=== PATIENT | female | born 1990 | race Caucasian/White ===

== ENCOUNTER 2021-07-30 16:35 | Day surgery (SDC) | payer BC ==
[2021-07-30 17:10] VITALS: BMI 31.9
[2021-07-30] MEDS ORDERED: hydrALAZINE 20 MG/ML VIAL SLOW IVP PRN (18:10)
[2021-07-30] MEDS ORDERED: Acetaminophen 500 MG TAB PO PRN (18:19)
[2021-07-30 18:56] LABS: #Eosinphils 0.1 10x3/uL (0.0-0.5); #Monocytes 0.6 10x3/uL (0.0-1.1); #Neutrophils 6.7 10x3/uL (1.5-8.4); %Basophils 0.2 % (0.0-2.0); %Eosinophils 0.7 % (0.0-6.0); %Lymphocytes 22.2 % (18.0-47.0); %Monocytes 6.1 % (0.0-10.0); %Neutrophils 70.2 % (40.0-75.0); Hemoglobin 10.9 g/dL (12.0-15.5); Mean Corpuscular HGB CONC 33.3 g/dL (32.0-36.0); Mean Corpuscular Hemoglobin 29.7 pg (27.0-33.0); Mean Corpuscular Volume 89.1 fl (81.6-98.3); Mean Platelet Volume 12.6 fl (7.4-10.4); Platelet Count 255 10x3/uL (150-450); RBC Distribution Width 15.1 % (11.5-14.5); Red Blood Cell (RBC) Count 3.67 10x6/uL (3.90-5.03); White Blood Cell (WBC) Count 9.5 10x3/uL (3.5-10.5)
[2021-07-30 19:11] LABS: ALT (SGPT) 8 U/L (8-55); AST (SGOT) 15 U/L (5-34); Albumin 3.5 g/dL (3.5-5.0); Alkaline Phosphatase 91 U/L (40-110); Anion Gap 15 mmol/L (10-20); BUN (Urea Nitrogen) 8 mg/dL (7.0-18.7); Bilirubin, Total 0.3 mg/dL (0.2-1.2); Calc. Creatinine Clearance 170 mL/min (70-130); Calcium 10.2 mg/dL (7.8-10.44); Carbon Dioxide 24 mmol/L (22-29); Chloride 103 mmol/L (98-107); Globulin 3.5 g/dL (2.4-3.5); Glucose 74 mg/dL (70-105); Potassium 4.5 mmol/L (3.5-5.1); Sodium 137 mmol/L (136-145)
== END 2021-07-30 20:35 | disposition home or self-care (01) ==
LOC: CSHLD/OP 16:35
PROVIDERS: ATTEND Obstetrics & Gynecology
DX: O13.3 Gestational [pregnancy-induced] hypertension without significant proteinuria, third trimester (principal); O34.211 Maternal care for low transverse scar from previous cesarean delivery; Z3A.32 32 weeks gestation of pregnancy; Z88.0 Allergy status to penicillin; Z91.030 Bee allergy status
CPT/HCPCS: 36415; 80053; 81003; 82570; 84156; 85025

== ENCOUNTER 2021-08-07 15:24 | Inpatient (IN) | payer BC ==
[2021-08-07] MEDS ORDERED: hydrALAZINE 20 MG/ML VIAL SLOW IVP PRN ×3 (15:58→21:03)
[2021-08-07 16:14] VITALS: BMI 32.2
[2021-08-07 16:38] LABS: #Eosinphils 0.1 10x3/uL (0.0-0.5); #Monocytes 0.4 10x3/uL (0.0-1.1); #Neutrophils 6.4 10x3/uL (1.5-8.4); %Basophils 0.1 % (0.0-2.0); %Eosinophils 1.2 % (0.0-6.0); %Lymphocytes 26.1 % (18.0-47.0); %Monocytes 4.6 % (0.0-10.0); %Neutrophils 67.4 % (40.0-75.0); Hemoglobin 10.6 g/dL (12.0-15.5); Mean Corpuscular HGB CONC 32.3 g/dL (32.0-36.0); Mean Corpuscular Hemoglobin 29.1 pg (27.0-33.0); Mean Corpuscular Volume 90.1 fl (81.6-98.3); Mean Platelet Volume 12.5 fl (7.4-10.4); Platelet Count 251 10x3/uL (150-450); RBC Distribution Width 14.5 % (11.5-14.5); Red Blood Cell (RBC) Count 3.64 10x6/uL (3.90-5.03); White Blood Cell (WBC) Count 9.5 10x3/uL (3.5-10.5)
[2021-08-07 16:55] LABS: ALT (SGPT) 47 U/L (8-55); AST (SGOT) 22 U/L (5-34); Albumin 3.3 g/dL (3.5-5.0); Alkaline Phosphatase 97 U/L (40-110); Anion Gap 15 mmol/L (10-20); BUN (Urea Nitrogen) 10 mg/dL (7.0-18.7); Bilirubin, Total 0.3 mg/dL (0.2-1.2); Calc. Creatinine Clearance 182 mL/min (70-130); Calcium 9.5 mg/dL (7.8-10.44); Carbon Dioxide 22 mmol/L (22-29); Chloride 102 mmol/L (98-107); Globulin 3.3 g/dL (2.4-3.5); Glucose 79 mg/dL (70-105); Potassium 4.4 mmol/L (3.5-5.1); Protein, Total 6.6 g/dL (6.0-8.3); Sodium 135 mmol/L (136-145)
[2021-08-07] MEDS ORDERED: Ondansetron PF 4 MG/2 ML Vial IVP PRN ×2 (18:24→21:22)
[2021-08-07] MEDS ORDERED: Promethazine HCl 25 MG/ML VIAL IM PRN ×2 (18:24→21:22)
[2021-08-07] MEDS ORDERED: Calcium Gluc 4.6 MEQ/10 ML (100 MG/ML) SLOW IVP PRN (18:24)
[2021-08-07] MEDS ORDERED: Lactated Ringer's 1,000 ML IV SCH (18:30)
[2021-08-07] MEDS ORDERED: ceFAZolin 2 GM/Dextrose 50 ML 2 GM in Premix Bag 1 BAG IVPB SCH (18:30)
[2021-08-07] MEDS ORDERED: Bicitra 30 ML UDCUP PO PRN (18:30)
[2021-08-07] MEDS ORDERED: Famotidine/PF 20 mg/2ml Vial SLOW IVP PRN (18:30)
[2021-08-07] MEDS ORDERED: Magnesium Sulfate 20 gm/500 ml 20 GM/500 ML BAG IVPB SCH (18:30)
[2021-08-07] MEDS ORDERED: Magnesium Sulfate 20 GM/WATER 500 ML BAG IVPB SCH (18:30)
[2021-08-07] MEDS ORDERED: Magnesium Sulfate 20 gm/500 ml 20 GM/500 ML BAG ONE (18:34)
[2021-08-07 19:07] LABS: Syphilis Antibody Nonreactive (Nonreactive); Syphilis Antibody Index 0.05 S/CO (<1.00 Non-Reactive)
[2021-08-07] MEDS ORDERED: diphenhydrAMINE 50 MG/ML VIAL ONE (19:18)
[2021-08-07 19:21] LABS: HBSAg Index 0.19 S/CO (0-0.99); Hep B Surf Ag Non-Reactive S/CO (NonReactive)
[2021-08-07] MEDS ORDERED: Oxytocin 10 UNITS/ML VIAL ONE (19:59)
[2021-08-07] MEDS ORDERED: Morphine PF 10 MG/10 ML VIAL ONE (20:00)
[2021-08-07] MEDS ORDERED: PHENYLEPHRINE-NS 100 MCG/ML 10 ML SYRINGE ONE (20:39)
[2021-08-07] MEDS ORDERED: Ondansetron PF 4 MG/2 ML Vial ONE (20:48)
[2021-08-07] MEDS ORDERED: Dexamethasone 4 mg/ml Vial ONE (20:48)
[2021-08-07] MEDS ORDERED: Ketorolac Tromethamine 30 MG/ML VIAL ONE (20:55)
[2021-08-07] MEDS ORDERED: Fentanyl 100 MCG/2 ML VIAL ONE (20:56)
[2021-08-07] MEDS ORDERED: Lanolin Ointment 7 GM TUBE TOP PRN (21:03)
[2021-08-07] MEDS ORDERED: Bisacodyl 10 MG SUPP PR PRN (21:03)
[2021-08-07] MEDS ORDERED: diphenhydrAMINE 25 MG CAP PO PRN (21:03)
[2021-08-07] MEDS ORDERED: HYDROcodone/Acetaminophen 5/325 mg Tablet PO PRN ×2 (21:03)
[2021-08-07] MEDS ORDERED: Boostrix 0.5 ML (Tdap) VIAL IM ONE (21:03)
[2021-08-07] MEDS ORDERED: Simethicone Chewable 80 MG TAB PO PRN (21:03)
[2021-08-07] MEDS ORDERED: Meperidine HCl/PF 25 MG/ML VIAL SLOW IVP PRN (21:22)
[2021-08-07] MEDS ORDERED: Fentanyl 100 MCG/2 ML VIAL SLOW IVP PRN (21:22)
[2021-08-07] MEDS ORDERED: diphenhydrAMINE 50 MG/ML VIAL IVP PRN (21:22)
[2021-08-07] MEDS ORDERED: Naloxone HCl 0.4 mg/ml Vial IV PRN (21:22)
[2021-08-07] MEDS ORDERED: HYDROmorphone 2 MG/ML VIAL SLOW IVP PRN (21:22)
[2021-08-07] MEDS ORDERED: Hydrocerin (Eucerin) Cream 120 gm Jar TOP PRN (21:22)
[2021-08-07] MEDS ORDERED: Promethazine HCl 25 MG SUPP PR PRN (21:22)
[2021-08-07] MEDS ORDERED: Naloxone HCl 0.4 mg/ml Vial IVP PRN ×2 (21:22)
[2021-08-07] MEDS ORDERED: Ketorolac Tromethamine 30 MG/ML VIAL IVP PRN (21:22)
[2021-08-07] MEDS ORDERED: Ondansetron HCl/PF 4 MG/2 ML Vial IVP PRN (21:22)
[2021-08-07] MEDS ORDERED: Communication Order-Pharmacy FS SCH (21:30)
[2021-08-07] MEDS ORDERED: Ketorolac Tromethamine 30 MG/ML VIAL IVP SCH (21:30)
[2021-08-07] MEDS ORDERED: Ibuprofen 800 MG TAB PO SCH (22:00)
[2021-08-07] MEDS ORDERED: Meperidine HCl/PF 25 MG/ML VIAL ONE (22:16)
[2021-08-07 22:38] LABS: SARS-CoV-2 NAA Rapid Test DETECTED (NotDetected)
[2021-08-07] MEDS ORDERED: HYDROmorphone 0.5 MG/0.5 ML SYRINGE SLOW IVP PRN (23:45)
[2021-08-08] MEDS: Ibuprofen 800 MG TAB PO SCH ×2 (05:37→22:33)
[2021-08-08 05:44] LABS: Hemoglobin 10.3 g/dL (12.0-15.5); Mean Corpuscular HGB CONC 32.5 g/dL (32.0-36.0); Mean Corpuscular Hemoglobin 29.1 pg (27.0-33.0); Mean Corpuscular Volume 89.5 fl (81.6-98.3); Mean Platelet Volume 12.4 fl (7.4-10.4); Platelet Count 267 10x3/uL (150-450); RBC Distribution Width 14.8 % (11.5-14.5); Red Blood Cell (RBC) Count 3.54 10x6/uL (3.90-5.03); White Blood Cell (WBC) Count 15.6 10x3/uL (3.5-10.5)
[2021-08-08] MEDS ORDERED: Ferrous Sulfate 325 MG TAB PO SCH (09:00)
[2021-08-08] MEDS ORDERED: Docusate 100 MG CAP PO SCH (09:00)
[2021-08-08] MEDS ORDERED: Prenatal Vitamin 1 TAB PO SCH (09:00)
[2021-08-08] MEDS ORDERED: HYDROcodone/Acetaminophen 5/325 mg Tablet PO PRN ×3 (09:30→21:32)
[2021-08-08] MEDS: Acetaminophen 325 MG TAB PO PRN ×2 (09:57→14:08)
[2021-08-08 13:45] LABS: Magnesium 6.7 mg/dL (1.6-2.6)
[2021-08-08 16:41] LABS: SARS-CoV-2 NAA Rapid Test DETECTED (NotDetected)
[2021-08-08] MEDS ORDERED: diphenhydrAMINE 25 MG CAP PO PRN (21:32)
[2021-08-08] MEDS ORDERED: hydrALAZINE 20 MG/ML VIAL SLOW IVP PRN (21:32)
[2021-08-08] MEDS ORDERED: Ondansetron PF 4 MG/2 ML Vial IVP PRN (21:32)
[2021-08-08] MEDS ORDERED: Lanolin Ointment 7 GM TUBE TOP PRN (21:32)
[2021-08-08] MEDS ORDERED: Simethicone Chewable 80 MG TAB PO PRN (21:32)
[2021-08-08] MEDS ORDERED: Acetaminophen 325 MG TAB PO PRN (21:32)
[2021-08-08] MEDS ORDERED: Boostrix 0.5 ML (Tdap) VIAL IM ONE (21:32)
[2021-08-08] MEDS ORDERED: Bisacodyl 10 MG SUPP PR PRN (21:32)
[2021-08-08] MEDS ORDERED: Ibuprofen 800 MG TAB PO SCH (22:00)
[2021-08-09] MEDS: Docusate 100 MG CAP PO SCH ×3 (02:39→21:44)
[2021-08-09] MEDS: Ferrous Sulfate 325 MG TAB PO SCH ×3 (02:39→23:26)
[2021-08-09] MEDS: Ibuprofen 800 MG TAB PO SCH ×4 (02:40→21:44)
[2021-08-09] MEDS: HYDROcodone/Acetaminophen 5/325 mg Tablet PO PRN ×4 (05:37→17:58)
[2021-08-09] MEDS: Prenatal Vitamin 1 TAB PO SCH (08:58)
[2021-08-10] MEDS: HYDROcodone/Acetaminophen 5/325 mg Tablet PO PRN ×2 (00:14→21:54)
[2021-08-10] MEDS: Ibuprofen 800 MG TAB PO SCH ×3 (05:18→21:54)
[2021-08-10] MEDS: Ferrous Sulfate 325 MG TAB PO SCH ×2 (08:41→21:55)
[2021-08-10] MEDS: Docusate 100 MG CAP PO SCH ×2 (08:52→21:54)
[2021-08-10] MEDS: Labetalol HCl 100 MG TAB PO SCH ×2 (08:52→21:54)
[2021-08-10] MEDS: Prenatal Vitamin 1 TAB PO SCH (08:52)
[2021-08-11] MEDS: Ibuprofen 800 MG TAB PO SCH (06:02)
[2021-08-11] MEDS: Ferrous Sulfate 325 MG TAB PO SCH (10:19)
[2021-08-11] MEDS: Labetalol HCl 100 MG TAB PO SCH (10:22)
[2021-08-11] MEDS: Docusate 100 MG CAP PO SCH (10:22)
[2021-08-11] MEDS: Prenatal Vitamin 1 TAB PO SCH (10:23)
[2021-08-11 11:31] VITALS: BP 141/86; TEMP 97.1
== END 2021-08-11 11:40 | disposition home or self-care (01) | DRG 786 ==
LOC: CSHLD/OP 15:24 → CSHLD 21:03 → CSHPP 08-08 21:00
PROVIDERS: ADMIT Obstetrics & Gynecology; ATTEND Obstetrics & Gynecology
PROC: 10D00Z1 Extraction of Products of Conception, Low, Open Approach (ICD-10-PCS; principal; 2021-08-07)
DX: O34.211 Maternal care for low transverse scar from previous cesarean delivery (principal); U07.1 COVID-19; O98.52 Other viral diseases complicating childbirth; O13.4 Gestational [pregnancy-induced] hypertension without significant proteinuria, complicating childbirth; Z3A.34 34 weeks gestation of pregnancy; Z37.0 Single live birth; O14.14 Severe pre-eclampsia complicating childbirth; O99.02 Anemia complicating childbirth; D50.9 Iron deficiency anemia, unspecified
CPT/HCPCS: 36415; 51702; 80053; 82570; 83735; 84156; 84550; 85025; 85027; 86762; 86780; 86850; 86900; 86901; 87340; 88307; 99285; J0360; J0690; J1100; J1170; J1200; J1885; J2175; J2274; J2405; J2590; J3010; J3475; U0002